=== PATIENT | female | born 1990 | race Caucasian/White ===

== ENCOUNTER → 2020-08-13 | Outpatient (CLI) | payer BC ==
[~2020-08-13] MED LIST: LOPRESSOR 25 MG25 MG PO
== END ==
LOC: MRI 08:30
DX: R51.9 Headache, unspecified (principal); Z53.9 Procedure and treatment not carried out, unspecified reason

== ENCOUNTER → 2020-08-29 | Outpatient (CLI) | payer BC ==
[2020-08-29 13:03] LABS: RED BLOOD COUNT 4.56 M/UL (4.00-5.10); WHITE BLOOD COUNT 6.5 K/UL (4.5-11.0)
[2020-08-29 13:13] LABS: BUN/CREATININE RATIO 14 (0-10)
== END ==
LOC: LAB 12:21
PROVIDERS: Family Medicine Addiction Medicine
DX: R51.9 Headache, unspecified (principal)
CPT/HCPCS: 80048; 85025; 85652; 86038; 86140

== ENCOUNTER → 2021-11-11 | Outpatient (CLI) | payer BC ==
[~2021-11-11] MED LIST changes: +IBU800 MG PO; +NEURONTIN400 MG PO; +POTASSIUM OTC PO; +PROVERA10 MG PO; +TOPROL XL100 MG PO; +VITAMIN B12 PO
[2021-11-11 10:11] LABS: HEMOGLOBIN 14.5 gm/dl (12.3-15.3); RED BLOOD COUNT 4.45 M/UL (4.00-5.10); WHITE BLOOD COUNT 5.7 K/UL (4.5-11.0)
[2021-11-11 10:32] LABS: BUN/CREATININE RATIO 17 (0-10)
== END ==
LOC: OPSV2 08:00
PROVIDERS: Anesthesiology; Obstetrics & Gynecology
DX: Z01.818 Encounter for other preprocedural examination (principal); N93.9 Abnormal uterine and vaginal bleeding, unspecified; R00.1 Bradycardia, unspecified; R94.31 Abnormal electrocardiogram [ECG] [EKG]
CPT/HCPCS: 80048; 81001; 85025; 93005

== ENCOUNTER → 2021-11-18 | Day surgery (SDC) | payer BC | END | disposition home or self-care (01) | LOC: OR 05:45 | DX: N93.9 Abnormal uterine and vaginal bleeding, unspecified (principal); N84.0 Polyp of corpus uteri; E03.9 Hypothyroidism, unspecified; Z88.0 Allergy status to penicillin; Z88.5 Allergy status to narcotic agent; Z79.899 Other long term (current) drug therapy | CPT/HCPCS: 84703; J1100; J1885; J2001; J2250; J2370; J2405; J2704; J2795; J3010 ==

== ENCOUNTER → 2022-01-06 | Outpatient (CLI) | payer BC ==
[~2022-01-06] MED LIST changes: +METOPROLOL SUCC50 MG PO; +PRESERVISION AREDS
[2022-01-06 09:30] LABS: HEMOGLOBIN 14.2 gm/dl (12.3-15.3); RED BLOOD COUNT 4.4 M/UL (4.00-5.10); WHITE BLOOD COUNT 4.9 K/UL (4.5-11.0)
== END ==
LOC: OPSV2 08:00
PROVIDERS: Obstetrics & Gynecology
DX: Z01.812 Encounter for preprocedural laboratory examination (principal); N93.9 Abnormal uterine and vaginal bleeding, unspecified
CPT/HCPCS: 36415; 81001; 85025

== ENCOUNTER → 2022-01-20 | Day surgery (SDC) | payer BC | END | disposition home or self-care (01) | LOC: OR 06:46 | DX: N93.9 Abnormal uterine and vaginal bleeding, unspecified (principal); Z88.5 Allergy status to narcotic agent; Z88.0 Allergy status to penicillin | CPT/HCPCS: 84703; J1100; J2001; J2250; J2370; J2405; J2704; J3010 ==

== ENCOUNTER → 2022-02-09 | Outpatient (CLI) | payer BC | LOC: RAD 12:22 | DX: M79.661 Pain in right lower leg (principal) | CPT/HCPCS: 73590 ==

== ENCOUNTER → 2022-02-15 | Outpatient (CLI) | payer BC | LOC: KOH-I 08:14 | DX: M79.661 Pain in right lower leg (principal); M62.89 Other specified disorders of muscle; S86.111A Strain of other muscle(s) and tendon(s) of posterior muscle group at lower leg level, right leg, initial encounter | CPT/HCPCS: 73718 ==